=== PATIENT | male | born 1970 | race Asian ===

== ENCOUNTER 2022-01-28 15:02 | Emergency (ER) | payer SELFPAY ==
[~2022-01-28] VITALS: Ht 170.2 cm; Wt 73.0 kg
[2022-01-28 22:57] LABS: HEMATOCRIT. 45.6 % (42.0-52.0); HEMOGLOBIN. 15.4 g/dL (14.0-18.0); MEAN CORPUSCULAR HEMOGLOBIN 30.3 pg (28.0-32.0); MEAN CORPUSCULAR VOLUME 89.7 fL (80.0-94.0); MEAN PLATELET VOLUME 7.5 fl (7.4-10.4); PLATELET 180 x1000/uL (130-400); RED BLOOD CELL COUNT 5.09 mill/uL (4.7-6.1); RED CELL DISTRIBUTION WIDTH 13.8 % (11.6-14.6)
[2022-01-28 23:05] LABS: CHLORIDE 107 mEq/L (98-107)
[2022-01-28 23:12] LABS: ETHANOL BLOOD < 10 mg/dL
[2022-01-28 23:25] LABS: PLATELET ESTIMATE NORMAL
[2022-01-29] MEDS ORDERED: ASPIRIN 325MG EC TABLET PO ONE (00:30)
[2022-01-29] MEDS ORDERED: SODIUM CHLORIDE 0.9% 1,000 ML IV ONE (01:00)
[2022-01-29 01:51] LABS: *AMPHETAMINES SCREEN URINE NEGATIVE (NEGATIVE); *BARBITURATES SCREEN URINE NEGATIVE (NEGATIVE); *BENZODIAZEPINES SCREEN URINE NEGATIVE (NEGATIVE); *COCAINE SCREEN URINE NEGATIVE (NEGATIVE); CANNABINOID URINE SCREEN NEGATIVE (NEGATIVE); METHADONE URINE SCREEN NEGATIVE (NEGATIVE); OPIATES URINE SCREEN NEGATIVE (NEGATIVE); PHENCYCLIDINE URINE SCREEN NEGATIVE (NEGATIVE)
[2022-01-29 02:02] LABS: COLOR URINE YELLOW (YELLOW)
[2022-01-29 02:03] LABS: CLARITY URINE CLEAR (CLEAR); KETONES URINE NEGATIVE (NEGATIVE); LEUKOCYTE ESTERASE URINE NEGATIVE (NEGATIVE); NITRITE URINE NEGATIVE (NEGATIVE); OCCULT BLOOD URINE NEGATIVE (NEGATIVE); PROTEIN URINE NEGATIVE (NEGATIVE); SPECIFIC GRAVITY URINE 1.009 (1.005-1.030); UROBILINOGEN URINE 0.2 E.U./dL (0.2-1.0)
[2022-01-29] MEDS ORDERED: ACET-2708 MT (02:14)
[2022-01-29 02:40] VITALS: BP 123/70
== END 2022-01-29 02:45 | disposition home or self-care (01) ==
LOC: ER 15:02
DX: R53.1 Weakness (principal); Z13.9 Encounter for screening, unspecified
CPT/HCPCS: 36415; 71045; 80053; 80305; 80320; 81003; 84484; 85025; 93005; 99285; G0480